=== PATIENT | female | born 1985 | race Caucasian/White ===

== ENCOUNTER 2021-02-23 07:59 | Emergency (ER) | payer OTHER ==
[2021-02-23] MEDS ORDERED: TORAdol 30 mg Injection IM ONE (08:20)
[2021-02-23] MEDS ORDERED: Norflex 60 MG/2 ML IM ONE (08:21)
[2021-02-23] MEDS ORDERED: Norflex 60 MG/2 ML ONE (08:23)
[2021-02-23] MEDS ORDERED: TORAdol 30 mg Injection ONE (08:23)
--- NOTE | 2021-02-23 09:07 | ERPHSYRPT ---
- History of Present Illness Time Seen by Provider: 02/23/21 08:06 Source: patient Exam Limitations: no limitations Patient Subjective Stated Complaint: Pt was lifting a trash bag at work at [employer] when she felt a pop in her right lower back Triage Nursing Assessment: Pt c/o of right lower back pain due to lifting a trash bag at work, states that she felt a pop and a pain shot down her right leg and it is now localized to her right back, vitals wnl, unable to lift right leg without assistance, pulses normal, doesn't appear to be in any distress Physician History: 35 years old healthy female presented in the ER with chief complaint of right lower back pain sudden onset after she lifted almost 50 pounds heavy box at work earlier this morning and felt a popping sound in the right lower back with sudden onset sharp throbbing pain moderate to severe intensity with radiation to right upper buttock initially but currently residing in right lower back. Pain is aggravated with activity and better with resting. It started to improve on its own and currently 6/10 intensity. Denies any numbness tingling or weakness of lower extremities. No loss of bowel or bladder control. Timing/Duration: hour(s) (3), constant, sudden, improved Method of Injury: lifting Quality: stabbing, throbbing Back Pain Location: paraspinous muscles Back Pain Radiation: buttocks Severity of Pain-Max: severe Severity of Pain-Current: moderate Modifying Factors: Improves With: immobilization, rest. Worsens With: movement Associated Symptoms: lower back pain, muscle spasms, No fever, No urinary incontinence, No loss of bowel control, No nausea, No vomiting, No numbness in legs/feet, No sensory/motor loss, No tingling in legs/feet Allergies/Adverse Reactions: iodine Allergy (Verified 02/23/21 08:21) Latex, Natural Rubber Allergy (Verified 02/23/21 08:21) Travel Risk - International Travel Have you traveled outside of the country in past 3 weeks: No - Coronavirus Screening Are you exhibiting any of the following symptoms?: No Close contact with a COVID-19 positive Pt in past 14-21 Days: No - Vaccine Status Have you recieved a Covid-19 vaccination: No - Review of Systems Constitutional: No Symptoms Ears, Nose, & Throat: No Symptoms Respiratory: No Symptoms Cardiac: No Symptoms Abdominal/Gastrointestinal: No Symptoms Genitourinary Symptoms: No Symptoms Musculoskeletal: Back Pain Skin: No Symptoms Neurological: No Symptoms Psychological: No Symptoms Endocrine: No Symptoms Hematologic/Lymphatic: No Symptoms - Past Medical History Pertinent Past Medical History: No - Past Surgical History Past Surgical History: No - Social History Smoking Status: Current every day smoker Exposure to second hand smoke: Yes Drug Use: none Patient Lives Alone: No - Female History Hx Last Menstrual Period: 01/26/2021 Hx Now: No (abstenance) - Nursing Vital Signs Nursing Vital Signs: Initial Vital Signs Temperature 98.3 F 02/23/21 08:08 Pulse Rate 83 02/23/21 08:08 Blood Pressure 137/77 02/23/21 08:08 O2 Sat by Pulse Oximetry 97 02/23/21 08:08 Pain Scale Pain Intensity [Right Lower 7 Back] Pain Intensity 7 - Physical Exam General Appearance: no apparent distress, alert Eye Exam: PERRL/EOMI Ears, Nose, Throat Exam: normal ENT inspection Neck Exam: normal inspection, supple, full range of motion Respiratory Exam: normal breath sounds, lungs clear Cardiovascular Exam: regular rate/rhythm, normal heart sounds Gastrointestinal Exam: soft, normal bowel sounds, No tenderness, No mass Back Exam: normal inspection, normal range of motion, muscle spasm, point tenderness (Right sacroiliac area. Positive straight leg raising test at 45 degrees on right.), No CVA tenderness, No vertebral tenderness, No decreased range of motion Extremity Exam: normal inspection, normal range of motion, pelvis stable Neurologic Exam: alert, oriented x 3, cooperative, nml station & gait, sensation nml, other (Bilateral 2+ reflexes symmetrical in lower extremities.), No motor deficits, No sensory deficit Skin Exam: normal color SpO2 Interpretation: normal SpO2: 97 O2 Delivery: Room Air Ordered Tests: Medication Summary Discontinued Medications Generic Name Dose Route Start Last Admin Trade Name Freq PRN Reason Stop Dose Admin Ketorolac Tromethamine 30 mg 02/23/21 08:20 02/23/21 08:24 Ketorolac Tromethamine 30 Mg/Ml Inj IM 02/23/21 08:21 30 mg STAT ONE Administration Ketorolac Tromethamine Confirm 02/23/21 08:23 Ketorolac Tromethamine 30 Mg/Ml Inj Administered 02/23/21 08:24 Dose 30 mg .ROUTE .STK-MED ONE Orphenadrine Citrate 60 mg 02/23/21 08:21 02/23/21 08:24 Orphenadrine Citrate 60 Mg/2 Ml Amp IM 02/23/21 08:22 60 mg STAT ONE Administration Orphenadrine Citrate Confirm 02/23/21 08:23 Orphenadrine Citrate 60 Mg/2 Ml Amp Administered 02/23/21 08:24 Dose 60 mg .ROUTE .STK-MED ONE - Progress Progress: improved Progress Note: 02/23/21 09:04 35 years old is evaluated for sudden onset right lower back pain. She does not have any midline tenderness at all. She has tenderness in the right sacroiliac area.. Intact neuro exam in lower extremities. No signs symptoms suggesting cauda equina. I believe patient has low back strain, do not think needs imaging at this point, given Toradol and Norflex for symptomatic relief and on reevaluation feeling much better. I will continue with muscle relaxants and NSAIDs to go home and outpatient follow-up recommended. Discussed signs symptoms of worsening needing return to ER which he seems understanding. Stable for discharge. Counseled pt/family regarding: diagnosis, need for follow-up - Departure Departure Disposition: Home Clinical Impression: Low back strain Qualifiers: Encounter type: initial encounter Qualified Code(s): S39.012A - Strain of muscle, fascia and tendon of lower back, initial encounter Condition: Stable Critical Care Time: No Referrals: Provider,Unknown [Primary Care Provider] - Follow up/PCP as directed ALLAN DAMON [ACTIVE STAFF] - Follow Up with PCP/3 days Instructions: Low Back Pain (DC), Sciatica (DC) Additional Instructions: Take Tylenol/ibuprofen as needed. Continue with muscle relaxants. Follow-up with primary care for reevaluation. Return to ER for worsening pain, numbness tingling weakness of lower extremities/loss of bowel or bladder control or perineal numbness. Prescriptions: Ibuprofen 600 mg PO Q6HPRN PRN 10 Days #20 tablet PRN Reason: Pain Methocarbamol 500 mg [Robaxin 500 MG] 500 mg PO Q6HPRN PRN 7 Days #20 tablet PRN Reason: Pain
== END 2021-02-23 09:42 | disposition home or self-care (01) ==
LOC: ED 07:59
DX: S39.012A Strain of muscle, fascia and tendon of lower back, initial encounter (principal); X50.0XXA Overexertion from strenuous movement or load, initial encounter; X50.9XXA Other and unspecified overexertion or strenuous movements or postures, initial encounter; Y93.89 Activity, other specified; Y92.29 Other specified public building as the place of occurrence of the external cause; Y99.0 Civilian activity done for income or pay; M54.50 Low back pain, unspecified
CPT/HCPCS: 96372; 99283; J1885; J2360